=== PATIENT | male | born 1975 | race Caucasian/White ===

== ENCOUNTER 2020-11-16 10:18 | Outpatient (CLI) | payer OTHER, SELFPAY | END 2020-11-16 10:19 | disposition home or self-care (01) | LOC: ANHCOVIDVC 10:18 | PROVIDERS: PCP Family Medicine | DX: Z23 Encounter for immunization (principal) | CPT/HCPCS: 0001A; 91300 ==

== ENCOUNTER 2020-12-07 10:13 | Outpatient (CLI) | payer OTHER, SELFPAY | END 2020-12-07 10:14 | disposition home or self-care (01) | LOC: ANHCOVIDVC 10:13 | PROVIDERS: PCP Family Medicine | DX: Z23 Encounter for immunization (principal) | CPT/HCPCS: 0002A; 91300 ==

== ENCOUNTER 2024-06-26 19:41 | Emergency (ER) | payer OTHER, SELFPAY ==
[2024-06-26 19:45] VITALS: BP 127/87; PULSE 61; RESP 14; TEMP 36.5; O2SAT 96
--- NOTE | 2024-06-26 20:55 | ED.WOUNDLAC ---
HPI - Wound/Laceration General Chief Complaint: Wound/Laceration Stated Complaint: finger lac Time Seen by Provider: 06/26/24 20:29 Source: patient Mode of arrival: ambulatory Limitations: no limitations History of Present Illness HPI narrative: This is a 49 year old male that presents to the ER for laceration to the right hand sustained just prior to arrival. Reports he was playing with a new knife and accidentally cut himself. He is not up to date on tetanus. Denies decreased ROM or numbness. Related Data Allergies Allergy/AdvReac Type Severity Reaction Status Date / Time No Known Allergies Allergy Verified 06/26/24 19:41 Review of Systems Review of Systems: CONSTITUTIONAL: Denies fever SKIN: Reports laceration MUSCULOSKELETAL: Denies joint pain, or myalgia. NEUROLOGIC: Denies numbness All systems reviewed & are unremarkable except as noted in HPI and below PMFSH Past Medical History Medical History (Updated 06/26/24 @ 21:55 by Jessica Riggs PA-C) Diabetes mellitus Mixed hyperlipidemia Surgical History Surgical History (Updated 06/26/24 @ 20:58 by Jessica Riggs PA-C) Gastric bypass status for obesity (05/20/18) Family History Family History (Updated 07/06/18 @ 11:12 by DOCTOR UNKNOWN) Father Family history of diabetes mellitus in first degree relative Diabetes mellitus Mother Family history of diabetes mellitus in first degree relative Diabetes mellitus Hypertension Sibling Diabetes mellitus Other Family history of elevated blood lipids Family history of hypercholesterolemia Social History Social History Smoking status: Never smoker Second hand tobacco smoke exposure: No Smoking end date: 09/08/16 Alcohol intake: current Exam Narrative: GENERAL: Well-appearing, well-nourished, and in no acute distress. HEAD: Normocephalic, atraumatic. EYES: EOMI. EXTREMITIES: Normal range of motion. No edema. 3cm linear laceration into subcutaneous tissue to the right hand dorsal surface between the 2nd and 3rd finger SKIN: Warm, dry, no rash. NEURO: No focal deficits. Alert and oriented x3. PSYCH: Normal mood and affect Course Course Emergency Course: patient educated on wound care Vital Signs Vital signs: Vital Signs Temperature 97.7 F 06/26/24 19:45 Pulse Rate 61 06/26/24 19:45 Respiratory Rate 14 06/26/24 19:45 Blood Pressure 127/87 06/26/24 19:45 Pulse Oximetry 96 06/26/24 19:45 Oxygen Delivery Room Air 06/26/24 19:45 Temperature 97.7 F 06/26/24 19:45 Pulse Rate 61 06/26/24 19:45 Respiratory Rate 14 06/26/24 19:45 Blood Pressure 127/87 06/26/24 19:45 Pulse Oximetry 96 06/26/24 19:45 Oxygen Delivery Room Air 06/26/24 19:45 Procedures Laceration Laceration 1: Date: 06/26/24 Time: 22:10 Site: hand Side (If applicable): right Size (cm): 3 Description: linear Depth: simple, single layer Local Anesthetic: lidocaine 1% and with epi Amount of anesthesia used (mL): 2 Pre-repair: wound explored and irrigated ====== Skin Level ====== Skin layer closed with: nylon Size (cm): 4-0 Number of sutures: 4 Technique: simple, interrupted ====== Subcutaneous Layer ====== ====== Muscle Layer ====== ====== Tendon Layer ====== MDM - Wound/Laceration MDM Narrative Medical decision making narrative: patient presents to the emergency department for laceration to the right hand sustained just prior to arrival. He is neurovascularly intact. Wound was irrigated and closed with sutures. He was educated on further wound care. Updated on tetanus vaccination. He is to follow up with primary provider. He was given warnings to return to the ER Differential Diagnosis Differential diagnosis: Likely laceration, abrasion and avulsion of skin Critical Care Time Critical Care Time Critical Care Time: No Discha
[2024-06-26] MEDS: TETANUS,DIPHTHERIA,AC PERTUSSIS ADULT (0.5 ML) BOOSTRIX IM (21:59)
[2024-06-26 22:00] VITALS: BP 134/90; PULSE 68; RESP 18; TEMP 36.4; O2SAT 96
== END 2024-06-26 22:08 | disposition home or self-care (01) ==
PROVIDERS: Emergency Provider Physician Assistant
DX: S61.411A Laceration without foreign body of right hand, initial encounter (principal); Z23 Encounter for immunization; E11.9 Type 2 diabetes mellitus without complications; E78.2 Mixed hyperlipidemia; Z98.84 Bariatric surgery status; W26.0XXA Contact with knife, initial encounter
CPT/HCPCS: 12002; 90471; 90715; 99282

== ENCOUNTER 2024-06-27 04:18 | Emergency (ER) | payer OTHER, SELFPAY ==
[2024-06-27 04:22] VITALS: BP 118/87; PULSE 62; RESP 14; TEMP 36.7; O2SAT 100
--- NOTE | 2024-06-27 05:10 | ED.GENADULT ---
HPI - General Adult General Chief complaint: Wound/Laceration Stated complaint: stitches bleeding Time Seen by Provider: 06/27/24 04:24 History of Present Illness HPI narrative: Patient is a 50-year-old male who presents to the emergency department this morning complaining of bleeding from his left hand wound. Patient was seen at our facility earlier in the evening after sustaining a left hand laceration. Four sutures were placed and patient was instructed to follow up with his primary care physician within the next week. Patient states that the wound was dressed but at home while he was asleep he blood through the dressing. Patient denies any additional symptoms or concerns at this time. Related Data Allergies Allergy/AdvReac Type Severity Reaction Status Date / Time No Known Allergies Allergy Verified 06/26/24 19:41 Review of Systems Review of Systems: All systems are reviewed and are negative unless stated otherwise in the HPI. FOR[facility]LY [facility] Past Medical History Medical History Diabetes mellitus Mixed hyperlipidemia Surgical History Surgical History Gastric bypass status for obesity (05/20/18) Family History Family History Father Family history of diabetes mellitus in first degree relative Diabetes mellitus Mother Family history of diabetes mellitus in first degree relative Diabetes mellitus Hypertension Sibling Diabetes mellitus Other Family history of elevated blood lipids Family history of hypercholesterolemia Social History Social History Smoking status: Never smoker Second hand tobacco smoke exposure: No Smoking end date: 09/08/16 Alcohol intake: current Exam Narrative: General: Alert, awake, afebrile, in no acute distress. HEENT: PERRL, no rhinorrhea, no post nasal drip, oropharynx clear. Cardiovascular: Regular rate and rhythm, no murmurs, rubs or gallops, no peripheral edema. Respiratory: Clear to auscultation bilaterally, no tachypnea, no wheezing, no rhonchi, no rubs, no respiratory distress. Abdomen: Soft, nontender, nondistended, no rebound, no guarding, no peritoneal signs. Musculoskeletal: No joint swelling or deformity, normal muscle tone. Skin: Laceration to left hand with [address], no active bleeding noted. Neurological: Alert and oriented to person, place, and time. Follows all commands. No focal deficits, speech is clear and fluent. Course Vital Signs Vital signs: Vital Signs Temperature 98.1 F 06/27/24 04:22 Pulse Rate 62 06/27/24 04:22 Respiratory Rate 14 06/27/24 04:22 Blood Pressure 118/87 06/27/24 04:22 Pulse Oximetry 100 06/27/24 04:22 Oxygen Delivery Room Air 06/27/24 04:22 Temperature 98.1 F 06/27/24 04:22 Pulse Rate 69 06/27/24 05:24 Respiratory Rate 15 06/27/24 05:24 Blood Pressure 137/92 H 06/27/24 05:24 Pulse Oximetry 98 06/27/24 05:24 Oxygen Delivery Room Air 06/27/24 04:22 Medical Decision Making MDM Narrative Medical decision making narrative: The patient was evaluated by myself in the emergency department. History is obtained from patient who is an independent historian and physical exam was performed. External medical records were reviewed at this time. Patient's dressing was removed and wound was irrigated and cleaned. No active bleeding noted at this time. Patient was observed in our facility for an hour with no rebleeding. Wound was redressed. Differential diagnosis considerations include hematoma, suture dislodgement. Comorbidities impacting this visit include none. I have evaluated and discussed social determinants of health with the patient that could potentially impact subsequent diagnosis and treatment plans. On repeat assessment of the patient,
[2024-06-27 05:24] VITALS: BP 137/92; PULSE 69; RESP 15; O2SAT 98
[2024-06-27 05:27] LABS: Glucose Point of Care 220 mg/dl (65-105)
== END 2024-06-27 05:49 | disposition home or self-care (01) ==
PROVIDERS: Emergency Provider Emergency Medicine
DX: S61.412D Laceration without foreign body of left hand, subsequent encounter (principal); E11.9 Type 2 diabetes mellitus without complications; E78.2 Mixed hyperlipidemia; Z98.84 Bariatric surgery status; Z87.891 Personal history of nicotine dependence; X58.XXXD Exposure to other specified factors, subsequent encounter
CPT/HCPCS: 82948; 99282